=== PATIENT | male | born 1965 | race Caucasian/White ===

== ENCOUNTER → 2016-06-02 | Outpatient (CLI) | payer BC ==
[~2016-06-02] MED LIST: Albuterol 0.083% 2.5 MG/3 ML Neb Soln NEB ONE
== END ==
LOC: MW.RT 10:01
PROVIDERS: ATTEND Internal Medicine
DX: F17.210 Nicotine dependence, cigarettes, uncomplicated (principal)
CPT/HCPCS: 94060; 94729

== ENCOUNTER 2020-09-30 09:39 | Emergency (ER) | payer BC ==
[2020-09-30] MEDS ORDERED: Sodium Chloride 0.9% 2.5 ML Syringe FLUSH PRN (10:16)
[2020-09-30] MEDS ORDERED: Piperacillin/Tazobactam 4.5 GM in Sodium Chloride 0.9% 100 ML IV ONE (10:16)
[2020-09-30] MEDS ORDERED: Sodium Chloride 0.9% 10 ML Syringe FLUSH PRN (10:16)
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
[2020-09-30 11:20] LABS: BLOOD UREA NITROGEN,BUN 16 mg/dL (7.0-18.0); CARBON DIOXIDE,CO2 27.1 mmol/L (21.0-32.0); CHLORIDE,CL 101 mmol/L (98-107); GLUCOSE RANDOM 109 mg/dL (74-106); LIPASE 56 U/L (73-393); POTASSIUM,K 3.2 mmol/L (3.5-5.1); SODIUM,NA 136 mmol/L (136-148)
[2020-09-30] MEDS ORDERED: Potassium Chloride 20 MEQ Tab.ER PO ONE (11:33)
--- NOTE | 2020-09-30 13:26 | US ---
INDICATION: Cholecystitis TECHNIQUE: Ultrasound abdomen limited. Sonographic images of the right upper quadrant were obtained using swartz-scale and color Doppler images. COMPARISON: CT abdomen pelvis September 29, 2020 FINDINGS: Liver: Normal in size and echotexture. No masses. No intrahepatic biliary dilatation. Gallbladder: There is a moderately hydropic appearing gallbladder. There is gallbladder wall thickening measuring 3 mm. There is no definite evidence of previously seen calculus near the gallbladder neck. There is likely minimal dependent sludge. There is no sonographic tenderness to palpation. Common bile duct: 3 mm. Pancreas: Not well visualized due to overlying bowel gas. Right kidney: Normal in size. Normal echotexture and cortex. No masses, stones, or hydronephrosis. IMPRESSION: Redemonstration of mild gallbladder wall thickening with likely minimal dependent sludge. There is negative sonographic tenderness to palpation and a moderately hydropic gallbladder. No evidence of significant pericholecystic fluid. Findings may represent improvement from previous exam. Further characterization of potential acute cholecystitis with hepatobiliary imaging exam may be useful. Dictated by Derrick Pham MD @ 09/30/2020 1:25:[address] Derrick Pham @ Sep 30 2020 1:25PM
== END 2020-09-30 13:58 | disposition home or self-care (01) ==
LOC: MERGE 09:39 → MW.ED 09:39
DX: K81.9 Cholecystitis, unspecified (principal)
CPT/HCPCS: 36415; 76705; 80053; 83690; 85025; 96365; 99284; A9270; J2543

== ENCOUNTER 2021-10-13 18:20 | Inpatient (IN) | payer BC ==
[2021-10-13] MEDS ORDERED: Sodium Chloride 0.9% 10 ML Syringe FLUSH PRN (18:52)
[2021-10-13] MEDS ORDERED: Sodium Chloride 0.9% 2.5 ML Syringe FLUSH PRN (18:52)
[2021-10-13] MEDS ORDERED: Ketorolac 30 MG/ML SDV IVPUSH ONE (19:23)
[2021-10-13] MEDS ORDERED: Morphine 4 MG/ML VIAL IVPUSH ONE (19:23)
[2021-10-13] MEDS ORDERED: Ondansetron 4 MG/2 ML SDV IVPUSH ONE (19:23)
[2021-10-13] MEDS ORDERED: HYDROmorphone 1 MG/ML Syringe IVPUSH ONE (19:59)
[2021-10-13] MEDS ORDERED: Sodium Chloride 0.9% 1,000 ML IV ONE ×3 (19:59→21:25)
[2021-10-13 20:19] LABS: CARBON DIOXIDE,CO2 20.1 mmol/L (21.0-32.0)
[2021-10-13 20:36] LABS: CORONAVIRUS COVID-19 NAA POSITIVE (NEGATIVE); INFLUENZA A NAA NEGATIVE (NEGATIVE); INFLUENZA B NAA NEGATIVE (NEGATIVE)
[2021-10-13] MEDS ORDERED: Meropenem Premix 50 ML IV ONE (21:43)
[2021-10-13] MEDS ORDERED: VANCOmycin 2 GM/400 ML 2 GM in Premix Bag 1 BAG IV ONE (21:45)
[2021-10-14] MEDS ORDERED: Glucagon,Human Recombinant 1 MG Vial IM PRN (02:20)
[2021-10-14] MEDS ORDERED: 50% Dextrose in Water 50 ML Syringe IVPUSH PRN (02:20)
[2021-10-14] MEDS: Sodium Chloride 0.9% 1,000 ML IV SCH ×3 (02:27→22:59)
[2021-10-14] MEDS: Insulin Aspart 100 Units/ML 3 ML Pen SUBCUT SCH ×4 (06:23→23:39)
[2021-10-14] MEDS ORDERED: Insulin Aspart 100 Units/ML 3 ML Pen SUBCUT SCH (07:30)
[2021-10-14] MEDS ORDERED: Enoxaparin 30 MG/0.3 ML Syringe SUBCUT SCH (07:30)
[2021-10-14] MEDS: Meropenem Premix 1 GM in Premix Bag 1 BAG IV SCH ×2 (08:20→21:15)
[2021-10-14] MEDS ORDERED: Meropenem 500 MG in Sodium Chloride 0.9% 100 ML IV SCH (09:00)
[2021-10-14 09:38] LABS: CARBON DIOXIDE,CO2 14.4 mmol/L (21.0-32.0); POTASSIUM,K 4.2 mmol/L (3.5-5.1)
[2021-10-14] MEDS: Pantoprazole 40 MG in Sodium Chloride 0.9% 10 ML IVPUSH SCH (09:45)
[2021-10-14] MEDS: Morphine 2 MG/ML SYRINGE IVPUSH PRN ×3 (09:47→23:40)
[2021-10-14] MEDS ORDERED: Lactated Ringers 1,000 ML IV SCH (17:45)
[2021-10-14 20:12] LABS: CARBON DIOXIDE,CO2 18.8 mmol/L (21.0-32.0); POTASSIUM,K 4.1 mmol/L (3.5-5.1)
[2021-10-14] MEDS: Ondansetron 4 MG/2 ML SDV IVPUSH PRN (21:16)
[2021-10-14] MEDS ORDERED: Sodium Chloride 0.9% 1,000 ML IV ONE (21:29)
[2021-10-15] MEDS: Ondansetron 4 MG/2 ML SDV IVPUSH PRN ×2 (02:56→18:34)
[2021-10-15] MEDS ORDERED: Metoprolol Tartrate 5 MG/5 ML SDV IVPUSH ONE (04:32)
[2021-10-15] MEDS ORDERED: Prochlorperazine 10 MG/2 ML SDV IVPUSH ONE (04:33)
[2021-10-15 06:22] LABS: CARBON DIOXIDE,CO2 17.4 mmol/L (21.0-32.0); POTASSIUM,K 3.8 mmol/L (3.5-5.1)
[2021-10-15] MEDS ORDERED: Heparin Sodium/0.45% NaCl 500 ML IV SCH (06:30)
[2021-10-15] MEDS ORDERED: Heparin Sodium 5,000 Units/ML Vial IVPUSH ONE (07:00)
[2021-10-15] MEDS ORDERED: Enoxaparin 40 MG/0.4 ML Syringe SUBCUT SCH (07:30)
[2021-10-15] MEDS: Insulin Aspart 100 Units/ML 3 ML Pen SUBCUT SCH ×3 (07:36→18:36)
[2021-10-15] MEDS: Lactated Ringers 1,000 ML IV SCH ×4 (07:42→23:15)
[2021-10-15] MEDS: Pantoprazole 40 MG in Sodium Chloride 0.9% 10 ML IVPUSH SCH (08:45)
[2021-10-15] MEDS: Meropenem Premix 1 GM in Premix Bag 1 BAG IV SCH ×2 (08:47→21:16)
[2021-10-15] MEDS ORDERED: fentaNYL 100 MCG/2 ML SDV ONE (09:21)
[2021-10-15] MEDS ORDERED: Propofol 200 MG/20 ML SDV ONE (09:21)
[2021-10-15] MEDS ORDERED: fentaNYL 2,500 MCG in Sodium Chloride 0.9% 200 ML IV PRN (09:29)
[2021-10-15] MEDS ORDERED: propofoL 100 ML IV SCH (09:30)
[2021-10-15] MEDS: Heparin Sodium/0.45% NaCl 500 ML IV SCH (10:53)
[2021-10-15 12:40] LABS: CARBON DIOXIDE,CO2 18.1 mmol/L (21.0-32.0)
[2021-10-15] MEDS: Morphine 2 MG/ML SYRINGE IVPUSH PRN (14:11)
[2021-10-15] MEDS: VANCOmycin 1.5 GM/300 ML 1.5 GM in Premix Bag 1 BAG IV SCH (22:08)
[2021-10-16] MEDS: Insulin Aspart 100 Units/ML 3 ML Pen SUBCUT SCH ×4 (00:35→18:28)
[2021-10-16] MEDS: Lactated Ringers 1,000 ML IV SCH ×2 (03:29→07:27)
[2021-10-16] MEDS: Heparin Sodium/0.45% NaCl 500 ML IV SCH ×2 (04:36→20:21)
[2021-10-16] MEDS: Morphine 2 MG/ML SYRINGE IVPUSH PRN ×2 (04:44→08:54)
[2021-10-16 06:16] LABS: CARBON DIOXIDE,CO2 21.2 mmol/L (21.0-32.0); POTASSIUM,K 3.5 mmol/L (3.5-5.1)
[2021-10-16] MEDS ORDERED: Heparin Sodium 5,000 Units/ML Vial IVPUSH ONE ×2 (06:16→17:40)
[2021-10-16] MEDS: Pantoprazole 40 MG in Sodium Chloride 0.9% 10 ML IVPUSH SCH (08:09)
[2021-10-16] MEDS: Meropenem Premix 1 GM in Premix Bag 1 BAG IV SCH ×2 (08:10→21:25)
[2021-10-16] MEDS ORDERED: Furosemide 40 MG/4 ML VIAL IVPUSH ONE (09:14)
[2021-10-16] MEDS ORDERED: Phosphorus #1 250 MG Tab PO ONE (09:18)
[2021-10-16] MEDS ORDERED: Magnesium Sulfate/Water 2 GM in Premix Bag 1 BAG IV ONE (09:45)
[2021-10-16] MEDS ORDERED: Magnesium Sulfate (4.06 MEQ/ML) 5 GM/10 ML SDV IV ONE (10:00)
[2021-10-16] MEDS: Albuterol/Ipratropium 3.0-0.5 MG/3 ML Neb Soln NEB PRN (12:19)
[2021-10-16] MEDS: HYDROmorphone 1 MG/ML Syringe IVPUSH PRN ×3 (12:20→21:27)
[2021-10-16] MEDS: Ondansetron 4 MG/2 ML SDV IVPUSH PRN ×2 (16:52→21:28)
[2021-10-16 21:19] LABS: CARBON DIOXIDE,CO2 22.4 mmol/L (21.0-32.0); POTASSIUM,K 3.7 mmol/L (3.5-5.1)
[2021-10-16] MEDS: VANCOmycin 1.5 GM/300 ML 1.5 GM in Premix Bag 1 BAG IV SCH (22:16)
[2021-10-16] MEDS ORDERED: Azithromycin 500 MG in Sodium Chloride 0.9% 250 ML IV SCH (22:30)
[2021-10-17] MEDS: Insulin Aspart 100 Units/ML 3 ML Pen SUBCUT SCH ×3 (00:17→12:08)
[2021-10-17] MEDS: Lactated Ringers 1,000 ML IV SCH (01:23)
[2021-10-17] MEDS: HYDROmorphone 1 MG/ML Syringe IVPUSH PRN ×2 (04:23→11:42)
[2021-10-17 06:53] LABS: CARBON DIOXIDE,CO2 22.7 mmol/L (21.0-32.0); POTASSIUM,K 3.4 mmol/L (3.5-5.1)
[2021-10-17] MEDS: Pantoprazole 40 MG in Sodium Chloride 0.9% 10 ML IVPUSH SCH (08:00)
[2021-10-17] MEDS ORDERED: Potassium Chloride 20 MEQ in Premix Bag 1 BAG IV ONE (08:00)
[2021-10-17] MEDS: Meropenem Premix 1 GM in Premix Bag 1 BAG IV SCH (08:00)
[2021-10-17] MEDS: Albuterol/Ipratropium 3.0-0.5 MG/3 ML Neb Soln NEB PRN (08:58)
[2021-10-17] MEDS: Ondansetron 4 MG/2 ML SDV IVPUSH PRN (08:58)
[2021-10-17] MEDS: Heparin Sodium/0.45% NaCl 500 ML IV SCH (09:34)
[2021-10-17] MEDS ORDERED: REMDESIVIR 200 MG in Sodium Chloride 0.9% 250 ML IV ONE (10:00)
[2021-10-17] MEDS ORDERED: Dexamethasone 4 MG/ML SDV IVPUSH SCH (10:00)
[2021-10-17] MEDS ORDERED: Prochlorperazine 10 MG/2 ML SDV IVPUSH ONE ×2 (10:05)
[2021-10-17 10:10] LABS: LIPASE 110 U/L (73-393)
[2021-10-17] MEDS ORDERED: Albuterol 0.083% 2.5 MG/3 ML Neb Soln NEB ONE (11:32)
[2021-10-17] MEDS ORDERED: Albuterol/Ipratropium 3.0-0.5 MG/3 ML Neb Soln NEB ONE (11:34)
[2021-10-17] MEDS ORDERED: Furosemide 40 MG/4 ML VIAL IVPUSH ONE (12:00)
[2021-10-17] MEDS ORDERED: Albuterol/Ipratropium 3.0-0.5 MG/3 ML Neb Soln NEB SCH (14:00)
[2021-10-18] MEDS ORDERED: REMDESIVIR 100 MG in Sodium Chloride 0.9% 100 ML IV SCH (10:00)
== END 2021-10-17 12:50 | DRG 720 ==
LOC: MW.ED 18:20 → MW.MS 23:26 → MW.ICU 10-15 02:28
PROVIDERS: ADMIT Internal Medicine; ATTEND Internal Medicine
PROC: XW033N5 Introduction of Meropenem-vaborbactam Anti-infective into Peripheral Vein, Percutaneous Approach, New Technology Group 5 (ICD-10-PCS; 2021-10-13)
PROC: 3E03329 Introduction of Other Anti-infective into Peripheral Vein, Percutaneous Approach (ICD-10-PCS; 2021-10-13)
PROC: 03HC33Z Insertion of Infusion Device into Left Radial Artery, Percutaneous Approach (ICD-10-PCS; 2021-10-13)
PROC: 5A0945A Assistance with Respiratory Ventilation, 24-96 Consecutive Hours, High Flow/Velocity Cannula (ICD-10-PCS; 2021-10-15)
PROC: 5A09357 Assistance with Respiratory Ventilation, Less than 24 Consecutive Hours, Continuous Positive Airway Pressure (ICD-10-PCS; principal; 2021-10-16)
PROC: XW033E5 Introduction of Remdesivir Anti-infective into Peripheral Vein, Percutaneous Approach, New Technology Group 5 (ICD-10-PCS; 2021-10-17)
PROC: 3E0DX3Z Introduction of Anti-inflammatory into Mouth and Pharynx, External Approach (ICD-10-PCS; 2021-10-17)
DX: A41.9 Sepsis, unspecified organism (principal); K85.10 Biliary acute pancreatitis without necrosis or infection; U07.1 COVID-19; N17.9 Acute kidney failure, unspecified; E11.9 Type 2 diabetes mellitus without complications; E87.2 Acidosis; E86.0 Dehydration; J96.91 Respiratory failure, unspecified with hypoxia; I26.99 Other pulmonary embolism without acute cor pulmonale; Z79.84 Long term (current) use of oral hypoglycemic drugs; Z85.47 Personal history of malignant neoplasm of testis; Z79.899 Other long term (current) drug therapy
CPT/HCPCS: 0240U; 36410; 36415; 51702; 71045; 71045-26; 74176; 74176-26; 76705; 76705-26; 80048; 80053; 80061; 80202; 81001; 82150; 82803; 82947; 83605; 83690; 83735; 84100; 84484; 85025; 85379; 85610; 85730; 87040; 87077; 87086; 87154; 87186; 93005; 93010; 94640; 94660; 96361; 96365; 96367; 96375; 99222; 99232; 99239; 99285; 99285-25; A9270-GY; C9113; J0456; J0780; J1100; J1170; J1644; J1650; J1815-GY; J1885; J1940; J2185; J2270; J2405; J2704; J3010; J3370; J3475; J3480; J3490; J7030; J7050; J7120; J7620-GY